=== PATIENT | male | born 1985 | race Caucasian/White ===

== ENCOUNTER 2021-03-11 11:45 | Outpatient (CLI) | payer OTHER, SELFPAY ==
[2021-03-11 14:56] LABS: Influenza A QL RT-PCR Negative (Negative); Influenza B QL RT-PCR Negative (Negative); SARS-CoV-2 RNA PCR Negative (Negative)
== END 2021-03-11 11:46 | disposition home or self-care (01) ==
LOC: CHSLAB 11:49
PROVIDERS: PCP Internal Medicine; Visit Provider Nurse Practitioner Family
DX: J06.9 Acute upper respiratory infection, unspecified (principal); Z20.822 Contact with and (suspected) exposure to COVID-19
CPT/HCPCS: 87081; 87502; 87880; C9803; U0003; U0005

== ENCOUNTER 2023-05-17 06:19 | Emergency (ER) | payer OTHER, SELFPAY ==
[2023-05-17] VITALS (9 sets, daily range): BP systolic 116–141; BP diastolic 63–99; PULSE 65–86; RESP 16–18; TEMP 36.4–37.1; O2SAT 93–100
--- NOTE | ~2023-05-17 | CT_ITS ---
EXAMINATION: CT abdomen pelvis wo con DATE: 05/17/2023 07:17 INDICATION: Adynamic ileus. Upper abdominal pain. TECHNIQUE: Computed tomography (CT) of the abdomen and pelvis was performed without intravenous contr ast. Automated exposure control and iterative reconstruction technique were employed. The dose-length product was 1696.83 mGy-cm. COMPARISON: None. FINDINGS: The visualized portions of the lung bases demonstrate minimal atelectasis. No pleural effus ion. The heart size is normal. No pericardial effusion. There is diffuse hepatic steatosis. The gallb ladder, spleen, pancreas, adrenal glands, and left kidney are normal. There is a 5 mm stone in right kidney. The sigmoid colon is mildly distended. The appendix is normal. There is a small right inguina l hernia containing fat. There are no pathologically enlarged lymph nodes. There is no free intraperi toneal fluid. There is moderate thoracic and lumbar spondylosis. IMPRESSION: 1. Mildly distended sigmoid colon, likely adynamic ileus. 2. Diffuse hepatic steatosis. Reviewed, dictated and finalized at location E. LA TAPPER
--- NOTE | ~2023-05-17 | XR_ITS ---
EXAMINATION: XR abdomen/kub 1V DATE: 05/17/2023 06:43 INDICATION: Upper abdominal pain. Blood in stool. TECHNIQUE: A supine view of the abdomen on 3 radiographs was obtained. COMPARISON: None. FINDINGS: There is gaseous distention of the sigmoid colon. There is a moderate volume of stool in th e colon. IMPRESSION: 1. Gaseous distention of the sigmoid colon, likely adynamic ileus. Reviewed, dictated and finalized at location E. [employer] TECHNICIAN
--- NOTE | 2023-05-17 06:28 | ED.GIBLEED ---
HPI - GI Bleed General Chief complaint: GI Bleed <Fredi Lima MD - Last Filed: 05/18/23 07:05> Stated complaint: blood in stool <Fredi Lima MD - Last Filed: 05/18/23 07:05> Time Seen by Provider: 05/17/23 06:26 <Fredi Lima MD - Last Filed: 05/18/23 07:05> Source: patient <Fredi Lima MD - Last Filed: 05/18/23 07:05> Mode of arrival: ambulatory <Fredi Lima MD - Last Filed: 05/18/23 07:05> Limitations: no limitations <Fredi Lima MD - Last Filed: 05/18/23 07:05> History of Present Illness HPI Narrative: Patient is a 37-year-old male with some bright red per rectum this morning while having a hard stool. He has been having some difficulty with hard stools. No other GI bleeding. No other bleeding in general. patient is a diabetic. Poorly controlled diabetic. <Fredi iLma MD - Last Filed: 05/18/23 07:05> MD complaint: blood on toilet paper, blood streaked stool and gross hematochezia <Fredi Lima MD - Last Filed: 05/18/23 07:05> Onset (ago): hour(s) (1) <Fredi Lima MD - Last Filed: 05/18/23 07:05> Pain Consistency: intermittent <Fredi Lima MD - Last Filed: 05/18/23 07:05> Severity: mild <Fredi Lima MD - Last Filed: 05/18/23 07:05> Relieving factors: none <Fredi Lima MD - Last Filed: 05/18/23 07:05> Exacerbating factors: none <Fredi Lima MD - Last Filed: 05/18/23 07:05> Associated symptoms: abdominal pain ( Minimal) <Fredi Lima MD - Last Filed: 05/18/23 07:05> Treatments Prior to Arrival: none <Fredi Lima MD - Last Filed: 05/18/23 07:05> Related Data Home medications: Home Medications Medication Instructions Recorded Confirmed atorvastatin 20 mg tablet 20 mg PO HS 05/17/23 05/17/23 empagliflozin 10 mg tablet 10 mg PO DAILY 05/17/23 05/17/23 (Jardiance) metformin 1,000 mg tablet 1,000 mg PO BID 05/17/23 05/17/23 <Fredi Lima MD - Last Filed: 05/18/23 07:05> Allergies/Adverse reactions: Allergies Allergy/AdvReac Type Severity Reaction Status Date / Time Sulfa (Sulfonamide Allergy Hives Verified 05/17/23 06:44 Antibiotics) <Fredi Lima MD - Last Filed: 05/18/23 07:05> Review of Systems Review of Systems: All systems reviewed & are unremarkable except as noted in HPI and below <Fredi Lima MD - Last Filed: 05/18/23 07:05> Constitutional: Constitutional: Reports no additional constitutional complaints <Fredi Lima MD - Last Filed: 05/18/23 07:05> Eyes: Eyes: Reports no additional eye complaints <Fredi Lima MD - Last Filed: 05/18/23 07:05> ENT: Reports system reviewed and no additional complaints, except as documented <Fredi Lima MD - Last Filed: 05/18/23 07:05> Cardiovascular: Cardiovascular: Reports no additional cardiovascular complaints <Fredi Lima MD - Last Filed: 05/18/23 07:05> Respiratory: Respiratory: Reports no additional respiratory complaints <Fredi Lima MD - Last Filed: 05/18/23 07:05> Gastrointestinal: Gastrointestinal: Reports no additional gastrointestinal complaints <Fredi Lima MD - Last Filed: 05/18/23 07:05> Genitourinary: Genitourinary: Reports no additional male genitourinary complaints <Fredi Lima MD - Last Filed: 05/18/23 07:05> Musculoskeletal: Musculoskeletal: Reports no additional musculoskeletal complaints <Fredi Lima MD - Last Filed: 05/18/23 07:05> Integumentary/Breasts: Skin/Breast: Reports system reviewed and no additional complaints, except as docu <Fredi Lima MD - Last Filed: 05/18/23 07:05> Neurologic: Reports system reviewed and no additional complaints, except as documented <Fredi Lima MD - Last Filed: 05/18/23 07:05> Psychiatric: Psychiatric: Reports no additional psychiatric complaints <Fredi Lima MD - Last Filed: 05/18/23 07:05> Endocrine: Endocrin
[2023-05-17 06:36] LABS: Glucose Point of Care 254 mg/dl (65-105)
--- NOTE | 2023-05-17 07:03 | PC.NURSE ---
Report to KIERSTEN Gill at this time.
[2023-05-17 07:07] LABS: Basophils Absolute Auto 0.05 K/mm3 (0.00-0.10); Basophils Percent Auto 0.6 % (0.0-1.0); Eosinophils Absolute Auto 0.24 K/mm3 (0.02-0.50); Eosinophils Percent Auto 2.8 % (1.0-6.0); Hematocrit 40.3 % (40.0-54.0); Hemoglobin 13.3 g/dL (14.0-18.0); Immature Granulocyte Absolute 0.04 K/mm3 (0.00-0.00); Immature Granulocyte Percent A 0.5 % (0.0-0.0); Lymphocytes Absolute Auto 2.02 K/mm3 (1.10-4.50); Lymphocytes Percent Auto 23.2 % (18.0-42.0); Mean Corpuscular Hemoglobin 28.4 pg (27.0-31.0); Mean Corpuscular Volume 86.1 fL (78.0-102.0); Mean Platelet Volume 9.8 fl (8.7-11.0); Monocytes Absolute Auto 0.62 K/mm3 (0.10-0.90); Monocytes Percent Auto 7.1 % (2.0-11.0); Neutrophils Absolute Auto 5.7 K/mm3 (1.7-7.2); Neutrophils Percent Auto 65.8 % (50.0-70.0); Platelet Count Result 261 K/mm3 (150-420); Red Blood Count 4.68 M/mm3 (4.70-6.10); Red Cell Distribution Width 14.6 % (11.6-14.4); White Blood Count 8.7 K/mm3 (4.8-10.8)
[2023-05-17] MEDS: METOCLOPRAMIDE HCL INJ 10 MG/2 ML VIAL IV PUSH (07:23)
[2023-05-17] MEDS: diphenhydrAMINE HCl INJ 50 MG/ML VIAL 25 MG IV PUSH (07:23)
[2023-05-17 07:28] LABS: Alanine Aminotransferase 75 U/L (16-63); Albumin Level 3.5 g/dL (3.4-5.0); Alkaline Phosphatase 128 U/L (46-116); Anion Gap 9 mmol/L (8-16); Aspartate Amino Transferase 26 U/L (15-37); Bilirubin,Total 0.7 mg/dL (0.00-1.00); Blood Urea Nitrogen 10 mg/dL (7-18); Calcium 8.4 mg/dL (8.5-10.1); Carbon Dioxide 28 mmol/L (21-32); Chloride 99 mmol/L (98-108); Estimated CRCL calculation 167 ml/min; Estimated Glomerular Filt Rate > 60; Glucose 258 mg/dL (70-99); Osmolality Calculated 290 mOsm/kg (285-295); Potassium 3.8 mmol/L (3.5-5.1); Sodium 136 mmol/L (136-145); Total Protein 7.3 g/dL (6.4-8.2)
== END 2023-05-17 08:30 | disposition home or self-care (01) ==
PROVIDERS: Emergency Medicine; Emergency Provider Emergency Medicine; PCP Family Medicine
DX: K56.0 Paralytic ileus (principal); K92.1 Melena; Z79.84 Long term (current) use of oral hypoglycemic drugs
CPT/HCPCS: 36415; 74018; 74176; 80053; 82948; 85025; 96374; 96375; 99284; J1200; J2765